=== PATIENT | male | born 1985 | race Caucasian/White ===

== ENCOUNTER 2020-05-25 23:13 | Emergency (ER) | payer MEDICAID ==
[~2020-05-25] VITALS: Ht 177.8 cm; Wt 90.7 kg
[~2020-05-25 23:13] MED LIST: TYLENOL PRN
--- NOTE | 2020-05-25 23:15 | NUR ---
bib [facility] to [facility]
[2020-05-25 23:16] VITALS: BP 141/81
[2020-05-25 23:22] VITALS: BP 141/81
--- NOTE | 2020-05-25 23:30 | NUR ---
[facility] tech [facility] #[id number]. VSS
== END 2020-05-25 23:30 ==
LOC: MED 23:13
DX: F15.10 Other stimulant abuse, uncomplicated (principal); Z02.89 Encounter for other administrative examinations
CPT/HCPCS: 99283

== ENCOUNTER 2020-06-06 22:05 | Emergency (ER) | payer MEDICAID ==
[~2020-06-06] VITALS: Ht 175.3 cm; Wt 85.7 kg
[2020-06-06 22:09] VITALS: BP 131/82
--- NOTE | 2020-06-06 22:16 | NUR ---
PT AMBULATED TO ER BED 6
--- NOTE | 2020-06-06 22:26 | NUR ---
35 Y/O MALE CAME IN TO ER WITH COMPLAINTS OF DEPRESSION. PT DENIES SUICIDAL IDEATION, DENIES ANY THOUGHTS OF HARM TO SELF. DENIES ANY PAST SUICIDAL ATTEMPT. REPORTS NOT HAVING ANY PLACE TO LIVE, CURRENTLY WAITING TO BE PLACED IN A PROGRAM FOR DRUG REHAB. REPORTS TAKING CRYSTAL METH YESTERDAY. DENIES PAIN, NO COMPLAINTS AT THIS TIME. ALL SHARPS, EQUIPMENT REMOVED FROM ROOM. SAFETY MEASURES IN PLACE.
[2020-06-06 22:41] LABS: BASOPHILS # (AUTO) 0.1 K/uL (0.00-0.22); BASOPHILS % (AUTO) 0.9 % (0.0-2.0); EOSINOPHILS % (AUTO) 0.3 % (0.0-4.0); HEMATOCRIT 43.4 % (36-52); HEMOGLOBIN 14.7 g/dL (12.0-18.0); LYMPHOCYTES # (AUTO) 1.6 K/uL (2.0-11.5); LYMPHOCYTES % (AUTO) 13.7 % (20.5-51.1); MEAN CORPUSCULAR HEMOGLOBIN 30 pg (27-31); MEAN CORPUSCULAR HGB CONC 34 g/dL (33-37); MEAN CORPUSCULAR VOLUME 88.4 fL (80-94); MONOCYTES # (AUTO) 0.9 K/uL (0.8-1.0); MONOCYTES % (AUTO) 7.7 % (1.7-9.3); NEUTROPHILS # (AUTO) 9.2 K/uL (1.8-7.7); NEUTROPHILS % (AUTO) 77.4 % (42.2-75.2); PLATELET COUNT (AUTO) 344 K/uL (140-450); RED CELL DISTRIBUTION WIDTH 13.8 % (11.6-13.7)
[2020-06-06 22:56] LABS: ACETAMINOPHEN < 0.5 ug/ml (10-30); ASPARTATE AMINOTRANSFERASE 35 U/L (15-37); CARBON DIOXIDE 27.2 mmol/L (21-32); CHLORIDE 105 mmol/L (98-107); CREATININE 1.2 mg/dL (0.6-1.3); GFR ARICAN-AMERICAN 90 mL/min (>90); GLUCOSE 118 mg/dL (74-106); POTASSIUM 3.2 mmol/L (3.5-5.1); SALICYLATE < 2.8 mg/dL (2.8-20.0); SODIUM SERUM 141 mmol/L (136-145); TOTAL BILIRUBIN 0.3 mg/dL (0.0-1.0); UREA NITROGEN, BLOOD 11 mg/dL (7-18)
--- NOTE | 2020-06-06 23:33 | NUR ---
ER MD AT BEDSIDE TO ASSESS PATIENT.
[2020-06-07 00:15] VITALS: BP 147/75
--- NOTE | 2020-06-07 00:15 | NUR ---
PT RESTING WELL, VITALS STABLE EXCEPT HR, SLIGHTLY ELEVATED, HR-110 BPM. DENIES PAIN AT THIS TIME, ENCOURAGED PT TO TALK ABOUT HIS PLANS TO GET BETTER. PT NOT ANSWERING QUESTIONS. ALL NEEDS MET AT THIS TIME.
[2020-06-07 00:32] LABS: BARBITURATE, URINE NEGATIVE ng/ml (NEG <=200); BENZODIAZEPINE, URINE NEGATIVE ng/mL (NEG <=200); CANNABINOID, URINE NEGATIVE ng/mL (NEG <=50); COCAINE, URINE NEGATIVE ng/mL (NEG <=300); OPIATE, URINE NEGATIVE ng/mL (NEG <=2000); PHENCYCLIDINE SCREEN,URINE NEGATIVE ng/mL (NEG <=25)
--- NOTE | 2020-06-07 00:40 | NUR ---
PT REQUESTING FOR PRIVACY AND ASKING TO CLOSE THE CURTAINS, " I DONT LIKE PEOPLE WATCHING ME LIKE THAT". PT MADE AWARE THAT ITS HOSPITAL PROTOCOL FOR CLOSE MONITORING. PT REPEATEDLY NOTIFYING NURSE THAT HE IS NOT SUICIDAL AND HAS NOT ATTEMPTED TO HURT HIMSELF. VERIFIED WITH TRIAGE NURSE AND CLARIFIED THAT PT REPORTED HE DID SAY YES FOR INTENTIONS TO HURT HIMSELF. PT AWARE WE WILL CONTINUE CLOSE MONITORING.
--- NOTE | 2020-06-07 01:05 | NUR ---
PT AWAKE AND ALERT IN BED, NO DISTRESS NOTED. PT ON ROOM AIR, DENIES PAIN AT THIS TIME. PT GETTING FRUSTRATED AND STATING "EVERYONE ELSE IS GETTING PRIVACY, ITS NOT FAIR, I'VE NEVER SAID EVER THAT I WANTED TO KILL MYSELF OR HURT MYSELF, I NEVER TOLD ANYONE THAT!" PT REPORTS HE DOES NOT WANT TO BE ON A 5150 HOLD. CLARIFIED THAT PATIENT IS NOT ON A HOLD BUT THAT WE ARE DOING WHAT WE CAN TO HELP AND REMINDED PT HE CAME IN TO ER FOR NEEDING HELP. PT ASKING TO GET HIS BELONGINGS AND REQUESTING TO LEAVE. ER MD MADE AWARE.
--- NOTE | 2020-06-07 01:10 | NUR ---
SECURITY RETURNED ALL BELONGINGS TO PATIENT. PT SIGNED AMA FORMS. PT VERBALIZES AGAIN THAT HE ONLY CAME IN FOR DEPRESSION BUT STATES "I FEEL FINE NOW". PT CHANGING OUT OF GOWN. ALL NEEDS MET AT THIS TIME.
--- NOTE | 2020-06-07 01:18 | NUR ---
PROVIDED PT WITH PAPERWORK AND EDUCATIONAL FORMS, PT YELLED "GIVE ME SOME PRIVACY!" REPORTS HES STILL CHANGING. PT LEFT WITHOUT FORMS. UNABLE TO GET SIGNATURE.
--- NOTE | 2020-06-07 01:30 | NUR ---
Patient discharged with v/s stable. Written and verbal after care instructions given and explained. Patient verbalized understanding. Ambulatory with steady gait. All questions addressed prior to discharge. Advised to follow up with PMD. Addendum: 06/07/20 at 0156 by Lvmae PT LEFT WITHOUT DISCHARGE [employer] AND [facility]OMEL[facility] [employer].
== END 2020-06-07 01:30 | disposition home or self-care (01) ==
LOC: MED 22:05 → MERGE 22:05 → MED 06-07 01:30
DX: F19.10 Other psychoactive substance abuse, uncomplicated (principal); F32.9 Major depressive disorder, single episode, unspecified; R03.0 Elevated blood-pressure reading, without diagnosis of hypertension; F17.200 Nicotine dependence, unspecified, uncomplicated; F15.10 Other stimulant abuse, uncomplicated
CPT/HCPCS: 36415; 80053; 80305; 85025; 93005; 99284; G0480; G0482

== ENCOUNTER 2020-12-11 00:25 | Emergency (ER) | payer MEDICAID, OTHER ==
[~2020-12-11] VITALS: Ht 175.3 cm; Wt 90.7 kg
[2020-12-11 00:31] VITALS: BP 129/86
== END 2020-12-11 01:22 | disposition left against medical advice (07) ==
LOC: MED 00:25
DX: R45.851 Suicidal ideations (principal); Z53.21 Procedure and treatment not carried out due to patient leaving prior to being seen by health care provider

== ENCOUNTER 2021-01-17 10:53 | Emergency (ER) | payer OTHER ==
[~2021-01-17] VITALS: Ht 177.8 cm; Wt 81.6 kg
--- NOTE | 2021-01-17 10:53 | NUR ---
Patient BIBA BLS, transferred to bed 7. RN evaluating the patient at bedside.
[2021-01-17 10:57] VITALS: BP 130/89
--- NOTE | 2021-01-17 11:03 | NUR ---
Dr. Valera is evaluating patient at bedside.
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
[2021-01-17] MEDS ORDERED: ACETAMINOPHEN EXTRA STRENGTH 500 MG TAB PO ONE (11:05)
--- NOTE | 2021-01-17 11:12 | NUR ---
Officer Jad of [facility] is at bedside for 5150 evaluation.
[2021-01-17 11:30] VITALS: BP 130/89
--- NOTE | 2021-01-17 11:30 | NUR ---
Patient discharged with v/s stable. Written and verbal after care instructions given and explained. Patient verbalized understanding. Ambulatory with steady gait. All questions addressed prior to discharge. Advised to follow up with PMD; Tylenol PRN.
== END 2021-01-17 11:30 | disposition home or self-care (01) ==
LOC: MED 10:53
DX: Z00.00 Encounter for general adult medical examination without abnormal findings (principal); F20.9 Schizophrenia, unspecified; Z79.899 Other long term (current) drug therapy
CPT/HCPCS: 99283

== ENCOUNTER 2021-04-14 14:03 | Emergency (ER) | payer OTHER ==
[~2021-04-14] VITALS: Ht 177.8 cm; Wt 95.3 kg
[2021-04-14 14:15] VITALS: BP 116/76
[2021-04-14] MEDS ORDERED: NACL 0.9% 2,000 ML IV ONE (14:15)
--- NOTE | 2021-04-14 14:15 | NUR ---
36 YEAR OLD MALE BIBA FOR HOLD PLACED BY JOAO JERNIGAN. PER EMS PT HAS BEEN HEARING VOICES FOR THE PAST 2 DAYS TELLING HIM TO HURT HIMSELF. PT DENIES PLAN, BUT ALSO STATES THEY ARE SAYING TO CUT HIS WRISTS. PT DENIES HI. PT ALSO COMPLAINS OF BLISTERS ON FEET. PT PLACED IN PRECAUTIONS, SITTER AT BEDSIDE. PMH - PSYCHOTIC EPISODES ALLERGIES - NKA
[2021-04-14 14:36] LABS: BASOPHILS # (AUTO) 0.1 K/uL (0.00-0.22); BASOPHILS % (AUTO) 0.6 % (0.0-2.0); EOSINOPHILS % (AUTO) 0.1 % (0.0-4.0); HEMATOCRIT 46.9 % (36-52); HEMOGLOBIN 15.9 g/dL (12.0-18.0); LYMPHOCYTES # (AUTO) 1.4 K/uL (2.0-11.5); LYMPHOCYTES % (AUTO) 12.4 % (20.5-51.1); MEAN CORPUSCULAR HEMOGLOBIN 30 pg (27-31); MEAN CORPUSCULAR HGB CONC 34 g/dL (33-37); MEAN CORPUSCULAR VOLUME 89.2 fL (80-94); MONOCYTES # (AUTO) 0.7 K/uL (0.8-1.0); MONOCYTES % (AUTO) 6.4 % (1.7-9.3); NEUTROPHILS # (AUTO) 9.2 K/uL (1.8-7.7); NEUTROPHILS % (AUTO) 80.5 % (42.2-75.2); PLATELET COUNT (AUTO) 346 K/uL (140-450); RED BLOOD CELL COUNT(AUTO) 5.26 MIL/uL (4.20-6.10); RED CELL DISTRIBUTION WIDTH 13.8 % (11.6-13.7); WHITE BLOOD COUNT (AUTO) 11.4 K/uL (4.8-10.8)
[2021-04-14] MEDS ORDERED: ACETAMINOPHEN 325 MG TAB PO ONE (14:55)
[2021-04-14 14:56] LABS: ANION GAP 12.2 (8-16); ASPARTATE AMINOTRANSFERASE 43 U/L (15-37); CARBON DIOXIDE 31.2 mmol/L (21-32); CHLORIDE 102 mmol/L (98-107); CREATININE 1.2 mg/dL (0.6-1.3); GFR ARICAN-AMERICAN 89 mL/min (>90); GLUCOSE 115 mg/dL (74-106); POTASSIUM 3.4 mmol/L (3.5-5.1); SODIUM SERUM 142 mmol/L (136-145); TOTAL BILIRUBIN 0.3 mg/dL (0.0-1.0); UREA NITROGEN, BLOOD 11 mg/dL (7-18)
[2021-04-14 15:06] LABS: ACETAMINOPHEN < 0.5 ug/ml (10-30); SALICYLATE < 2.8 mg/dL (2.8-20.0)
[2021-04-14] MEDS ORDERED: KETOROLAC 15 MG/ML VIAL IVP SCH (16:16)
[2021-04-14] MEDS ORDERED: POTASSIUM CHLORIDE 10 MEQ TABER PO SCH (16:16)
[2021-04-14 16:31] LABS: APPEARANCE,URINE CLEAR (CLEAR); BILIRUBIN,URINE NEGATIVE (NEGATIVE); BLOOD, URINE NEGATIVE (NEGATIVE); COLOR,URINE YELLOW (YELLOW); LEUKOCYTE ESTERASE ,URINE 1+ (NEGATIVE); NITRITE, URINE NEGATIVE (NEGATIVE); UGLUCOSE NEGATIVE (NEGATIVE)
[2021-04-14 16:56] LABS: BARBITURATE, URINE NEGATIVE ng/ml (NEG <=200); BENZODIAZEPINE, URINE NEGATIVE ng/mL (NEG <=200)
[2021-04-14 16:57] LABS: CANNABINOID, URINE NEGATIVE ng/mL (NEG <=50); COCAINE, URINE NEGATIVE ng/mL (NEG <=300); OPIATE, URINE NEGATIVE ng/mL (NEG <=2000); PHENCYCLIDINE SCREEN,URINE NEGATIVE ng/mL (NEG <=25)
--- NOTE | 2021-04-14 17:00 | NUR ---
PT ALERT AND AWAKE, BREATHING EVEN AND UNLABORED. NO DISTRESS NOTED. SITTER REMAINS AT BEDSIDE
[2021-04-14 19:05] LABS: RBC,URINE 0-5 /HPF (0-5)
--- NOTE | 2021-04-14 19:26 | NUR ---
REPORT GIVEN TO AYAKA PERDUE, TRANSFER OF CARE AT THIS TIME
--- NOTE | 2021-04-14 19:29 | NUR ---
RECEIVED REPORT FROM ARIEL PERDUE, FOR CONTINUITY OF CARE
--- NOTE | 2021-04-14 20:25 | NUR ---
TELEPSYCH SET UP AT [facility]. PATIENT REMAINS AWAKE AND RESPONSIVE TO VERBAL STIMULI. PATIENT PRESENTS CALM AND COOPERATIVE.
--- NOTE | 2021-04-14 21:22 | NUR ---
TELEPSYCH DOCTOR CALLED AND SPOKE WITH PRIMARY IRON DUNLAP
--- NOTE | 2021-04-14 21:24 | NUR ---
RECEIVED A CALL FROM TELEPSYCH DOCTOR REGARDING SOME UPDATES FOR PATIENT. PER MD, SHE WILL CALL AND TALK TO PT FOR EVALAUTION
--- NOTE | 2021-04-14 21:27 | NUR ---
TELEPSYCH DOCTOR SPEAKING WITH PT
--- NOTE | 2021-04-14 21:30 | NUR ---
PATIENT STATING TO TELEPSYCH DOCTOR, "I MADE IT ALL UP, I DON'T WANT TO KILL MYSELF. I LIED BECAUSE MY FEET HURT AND I COULD WALK SO I WNTED TO BE TAKEN TO THE HOSPITAL."
--- NOTE | 2021-04-14 21:45 | NUR ---
SPOKE TO TELEPSYCH DOCTOR, AND GAVE OK TO DC 5150 HOLD. ERMD MADE AWARE AND GIVING NEW ORDERS FOR DISCHARGE PAPERS.
[2021-04-14 22:00] VITALS: BP 116/76
--- NOTE | 2021-04-14 22:00 | NUR ---
Patient discharged with v/s stable. Written and verbal after care instructions given and explained. Patient verbalized understanding. Ambulatory with steady gait. All questions addressed prior to discharge. Advised to follow up with PMD.
== END 2021-04-14 22:20 | disposition home or self-care (01) ==
LOC: MED 14:03
DX: F29 Unspecified psychosis not due to a substance or known physiological condition (principal); Z20.822 Contact with and (suspected) exposure to COVID-19; M79.604 Pain in right leg; M79.605 Pain in left leg; Z79.899 Other long term (current) drug therapy
CPT/HCPCS: 36415; 73590; 80053; 80305; 81001; 82550; 85025; 87086; 87426; 96361; 96374; 99285; G0480; G0482; J1885; J7030; U0003; 93005